=== PATIENT | female | born 1970 | race African-American/Black ===

== ENCOUNTER 2017-07-29 09:44 | Emergency (ER) | payer BC, MEDICAID, OTHER ==
[~2017-07-29] VITALS: Ht 160 cm; Wt 68.0 kg
[2017-07-29] MEDS ORDERED: IBUPROFEN 600MG TABLET PO ONE (13:30)
[2017-07-29 15:28] VITALS: BP 130/59
== END 2017-07-29 15:31 | disposition home or self-care (01) ==
LOC: ER 09:44
DX: S60.112A Contusion of left thumb with damage to nail, initial encounter (principal); Z88.2 Allergy status to sulfonamides; W23.0XXA Caught, crushed, jammed, or pinched between moving objects, initial encounter; Y93.89 Activity, other specified; Y92.89 Other specified places as the place of occurrence of the external cause; Y99.8 Other external cause status
CPT/HCPCS: 73140; 99284

== ENCOUNTER 2017-09-11 15:23 | Emergency (ER) | payer OTHER ==
[~2017-09-11] VITALS: Ht 165.1 cm; Wt 64.0 kg
[2017-09-11 20:51] LABS: CLARITY URINE CLEAR (CLEAR); COLOR URINE YELLOW (YELLOW); KETONES URINE NEGATIVE (NEGATIVE); LEUKOCYTE ESTERASE URINE NEGATIVE (NEGATIVE); NITRITE URINE NEGATIVE (NEGATIVE); OCCULT BLOOD URINE NEGATIVE (NEGATIVE); PH URINE 8.5 (4.5-8.0); PROTEIN URINE NEGATIVE (NEGATIVE); SPECIFIC GRAVITY URINE 1.015 (1.005-1.030); UROBILINOGEN URINE 0.2 E.U./dL (0.2-1.0)
[2017-09-11] MEDS ORDERED: CYCLOBENZAPRINE 10MG TABLET PO ONE (22:45)
[2017-09-11] MEDS ORDERED: KETOROLAC 30MG/ML VIAL IM ONE (22:45)
[2017-09-11 23:30] VITALS: BP 118/72
== END 2017-09-11 23:48 | disposition home or self-care (01) ==
LOC: ER 15:23
DX: M54.5 Low back pain (principal); G89.29 Other chronic pain; Z88.2 Allergy status to sulfonamides
CPT/HCPCS: 81003; 81025; 96372; 99283; J1885; Z7610